=== PATIENT | female | born 1990 | race Caucasian/White ===

== ENCOUNTER → 2018-09-11 | Outpatient (CLI) | payer OTHER ==
[~2018-09-11] MED LIST: AMIT-104 PO
[2018-09-11 10:59] LABS: PLATELET COUNT, AUTOMATED 346 K/uL (150-450)
[2018-09-11 11:14] LABS: LDL CHOLESTEROL 73 mg/dl
== END ==
LOC: LAB 10:12
PROVIDERS: ATTEND Obstetrics & Gynecology
DX: Z00.00 Encounter for general adult medical examination without abnormal findings (principal)
CPT/HCPCS: 36415; 82040; 82247; 82310; 82374; 82435; 82465; 82565; 82947; 83718; 84075; 84132; 84155; 84295; 84450; 84460; 84478; 84520; 85025